=== PATIENT | male | born 1945 | race Caucasian/White ===

== ENCOUNTER → 2016-09-27 | Outpatient (CLI) | payer MEDICARE ==
--- NOTE | 2016-09-27 11:59 | REP ---
Clinical: Hematuria. Technique: Two supine views of the abdomen and pelvis. Findings: Conglomerate ovoid area of calcification measures approximately 4.9 x 1.8 cm overlying the right psoas muscle at the L2-3 level which is nonspecific, but may represent calcifications in the right renal pelvis or calcified retroperitoneal lymph nodes. The bilateral renal silhouettes are identified and without obvious nephrolithiasis. Skeletal structures demonstrate degenerative changes. Bilateral hip replacement. Phleboliths noted in the pelvis. Impression: 1. Ovoid area of conglomerate calcification overlies the right psoas muscle differential diagnosis includes but is not limited to calcifications in the renal pelvis/proximal ureter as well as calcified retroperitoneal lymph nodes. 2. No obvious renal calculi otherwise identified. Signed by Reji Garza MD 09/27/2016 11:51 A
[2016-09-27 17:24] LABS: ALBUMIN 4.1 GM/DL (3.2-5.2); ANION GAP 5 MEQ/L (8-16); BLOOD UREA NITROGEN 11 MG/DL (7-18); CARBON DIOXIDE LEVEL 30 MEQ/L (21-32); CHLORIDE LEVEL 105 MEQ/L (98-107); CREATININE FOR GFR 0.93 MG/DL (0.70-1.30); GLOMERULAR FILTRATION RATE > 60.0 (>42); GLUCOSE, FASTING 174 MG/DL (83-110); PHOSPHORUS LEVEL 2.6 MG/DL (2.5-4.9); POTASSIUM SERUM 4.1 MEQ/L (3.5-5.1); SODIUM LEVEL 140 MEQ/L (136-145)
== END ==
LOC: M WUC 11:16
PROVIDERS: ATTEND Physician Assistant
DX: R31.9 Hematuria, unspecified (principal)

== ENCOUNTER → 2016-10-14 | Outpatient (CLI) | payer MEDICARE ==
--- NOTE | 2016-10-14 12:03 | REP ---
LUMBAR SPINE, FIVE VIEWS: HISTORY: Back pain. There is no acute fracture. The intervertebral discs are decreased in height consistent with disc degeneration. Osteophytes are present throughout the lumbar spine. There is narrowing of the L4-5 and L5-S1 facet joints. There is 6 mm of grade 1 spondylolisthesis of L5 on S1. Calcifications are present in the right upper quadrant consistent with cholelithiasis. IMPRESSION: 1. Degenerative change as described above. 2. Cholelithiasis. Signed by Adam Osman MD 10/14/2016 12:17 P
== END ==
LOC: M WUC 11:20
PROVIDERS: ATTEND Physician Assistant
DX: M54.5 Low back pain (principal); K80.20 Calculus of gallbladder without cholecystitis without obstruction